=== PATIENT | male | born 1955 | race Caucasian/White ===

== ENCOUNTER 2018-02-06 16:19 | Emergency (ER) | payer BC, MEDICAID ==
[~2018-02-06] VITALS: Ht 182.9 cm; Wt 104.3 kg
[2018-02-06 17:12] LABS: Basophils # (auto) 0.1 uL; Eosinophils # (auto) 0.1 uL; Hematocrit 42.9 % (41.0-53.0); Hemoglobin 14.6 g/dL (13.5-17.5); Lymphocytes # (auto) 1.8 uL; Lymphocytes % (auto) 32.4 % (10.0-50.0); Mean Corpuscular Hemoglobin 30.3 pg (28.0-32.0); Monocytes # (auto) 0.3 uL; Monocytes % (auto) 6.2 % (0.0-12.0); Neutrophils # (auto) 3.2 uL; Neutrophils % (auto) 58.4 % (37.0-80.0); Platelet Count (auto) 285 10^3/uL (140-450); Red Blood Cells 4.82 10^6/uL (4.5-5.90); Red Cell Distribution Width 14.1 % (11.8-14.3); White Blood Cell 5.6 10^3/uL (4.4-10.8)
[2018-02-06 17:27] LABS: Anion Gap 4 (5-15); Blood Urea Nitrogen 18 mg/dL (7-18); Calcium 8.4 mg/dL (8.5-10.1); Carbon Dioxide 27 mmol/L (21-32); Chloride 108 mmol/L (98-107); Glucose 91 mg/dL (74-106); Potassium 4.3 mmol/L (3.5-5.1); Sodium 139 mmol/L (136-145)
[2018-02-06 17:32] LABS: Alanine Aminotransferase 46 U/L (16-61); Alkaline Phosphatase 80 U/L (45-117); Aspartate Aminotransferase 32 U/L (15-37); BUN/Creatinine Ratio 15.4; Bilirubin, Total 0.6 mg/dL (0.2-1.0); GFR African American 81 mL/min; GFR Non-African American 67 mL/min; Total Protein 7.4 g/dL (6.4-8.2)
[2018-02-06] MEDS ORDERED: SODIUM CHLORIDE 0.9% 500 ML IVB ONE (19:01)
[2018-02-06] MEDS ORDERED: MORPHINE SULFATE 4 MG/ML SYR/VIAL IV ONE (19:15)
[2018-02-06] MEDS ORDERED: ONDANSETRON HCL 4 MG/2 ML VIAL IV ONE (19:15)
[2018-02-06 19:43] LABS: Amylase 91 U/L (25-115); Lipase 159 U/L (73-393)
[2018-02-06 22:30] VITALS: BP 118/80
== END 2018-02-06 23:15 | disposition home or self-care (01) ==
LOC: ER 16:30
DX: I24.9 Acute ischemic heart disease, unspecified (principal); R51 Headache; E78.5 Hyperlipidemia, unspecified; I10 Essential (primary) hypertension; G89.29 Other chronic pain; M54.9 Dorsalgia, unspecified; M10.9 Gout, unspecified
CPT/HCPCS: 36415; 74176; 76705; 80053; 82150; 83690; 84484; 85025; 93005; 94761; 96374; 96375; 99284; J2270; J2405; J7040

== ENCOUNTER 2018-02-12 11:14 | Inpatient (IN) | payer BC ==
[~2018-02-12] VITALS: Ht 182.9 cm; Wt 105.0 kg
[2018-02-12 11:42] LABS: Basophils # (auto) 0.1 uL; Basophils % (auto) 0.8 % (0.0-2.0); Eosinophils # (auto) 0 uL; Eosinophils % (auto) 0.6 % (0.0-7.0); Hematocrit 45.5 % (41.0-53.0); Hemoglobin 15.4 g/dL (13.5-17.5); Lymphocytes # (auto) 1.6 uL; Mean Corpuscular Hemoglobin 30.1 pg (28.0-32.0); Mean Corpuscular Hgb Conc. 33.9 g/dL (32.0-36.0); Mean Corpuscular Volume 88.9 fL (80.0-100.0); Monocytes # (auto) 0.2 uL; Monocytes % (auto) 2.8 % (0.0-12.0); Neutrophils # (auto) 4.9 uL; Neutrophils % (auto) 71.8 % (37.0-80.0); Platelet Count (auto) 278 10^3/uL (140-450); Red Blood Cells 5.12 10^6/uL (4.5-5.90); Red Cell Distribution Width 14.5 % (11.8-14.3); White Blood Cell 6.9 10^3/uL (4.4-10.8)
[2018-02-12] MEDS ORDERED: ASPirin 81 mg TAB ONE (11:57)
[2018-02-12 11:58] LABS: Albumin 3.8 g/dL (3.4-5.0); Anion Gap 9 (5-15); Blood Urea Nitrogen 13 mg/dL (7-18); Carbon Dioxide 23 mmol/L (21-32); Chloride 108 mmol/L (98-107); Glucose 116 mg/dL (74-106); Potassium 3.6 mmol/L (3.5-5.1); Sodium 140 mmol/L (136-145)
[2018-02-12] MEDS ORDERED: MORPHINE SULFATE 4 MG/ML SYR/VIAL IV ONE ×2 (12:00→14:30)
[2018-02-12] MEDS ORDERED: ASPirin 81 mg TAB PO ONE (12:00)
[2018-02-12] MEDS ORDERED: ONDANSETRON HCL 4 MG/2 ML VIAL IV ONE (12:00)
[2018-02-12 12:04] LABS: Alanine Aminotransferase 38 U/L (16-61); Alkaline Phosphatase 90 U/L (45-117); Aspartate Aminotransferase 26 U/L (15-37); BUN/Creatinine Ratio 11.7; Bilirubin, Total 0.4 mg/dL (0.2-1.0); GFR African American 86 mL/min; GFR Non-African American 71 mL/min; Total Protein 7.4 g/dL (6.4-8.2)
[2018-02-12] MEDS ORDERED: SIMV-13 PO (14:48)
[2018-02-12] MEDS ORDERED: SUCR1TAB38 PO (14:48)
[2018-02-12] MEDS ORDERED: ONDA4TAB5 PO (14:48)
[2018-02-12] MEDS ORDERED: ACAM1TAB4 PO ×2 (14:48)
[2018-02-12] MEDS ORDERED: METO25TA5 PO (14:48)
[2018-02-12] MEDS ORDERED: MORPHINE SULFATE 4 MG/ML SYR/VIAL IV PRN (15:00)
[2018-02-12] MEDS ORDERED: HYDROcodone-ACET 5/325MG TAB PO PRN (15:00)
[2018-02-12] MEDS ORDERED: ONDANSETRON HCL 4 MG/2 ML VIAL IV PRN (15:00)
[2018-02-12] MEDS ORDERED: METOPROLOL TARTRATE 25 MG TAB PO ONE (15:00)
[2018-02-12] MEDS ORDERED: NITROGLYCERIN 0.4 MG SL TAB SL PRN (15:00)
[2018-02-12] MEDS ORDERED: NITROGLYCERIN 0.2MG/HR TOPICAL PATCH TD ONE ×2 (15:00→15:15)
[2018-02-12] MEDS: THIAMINE INJ 100 MG, MULTIPLE VITAMIN 10 ML, FOLIC ACID 1 MG, MAGNESIUM SULF SDV 50% 8 ... IV SCH ×5 (15:43)
[2018-02-12 16:01] LABS: Cannabinoid Screen, Urine NEGATIVE (NEGATIVE); Phencyclidine Screen, Urine NEGATIVE (NEGATIVE)
[2018-02-12 16:03] LABS: Amphetamine Screen, Urine NEGATIVE (NEGATIVE); Barbiturate Scree,Urine NEGATIVE (NEGATIVE); Benzodiazephine Screen, Urine NEGATIVE (NEGATIVE); Cocaine Screen, Urine NEGATIVE (NEGATIVE); Opiate Scree,Urine POSITIVE (NEGATIVE)
[2018-02-12 17:00] VITALS: BP 133/79
[2018-02-12] MEDS ORDERED: INFLUENZA QUAD 2018-2019 0.5 ML SYRG IM ONE (18:15)
[2018-02-12] MEDS: MORPHINE SULFATE 4 MG/ML SYR/VIAL IV PRN (20:59)
[2018-02-12 21:41] VITALS: BP 111/68
[2018-02-12] MEDS: ATORVASTATIN 20 MG TAB PO SCH (22:32)
[2018-02-12] MEDS: METOPROLOL TARTRATE 25 MG TAB PO SCH (22:33)
[2018-02-13] MEDS: MORPHINE SULFATE 4 MG/ML SYR/VIAL IV PRN ×3 (02:34→18:53)
[2018-02-13 04:56] VITALS: BP 134/85
[2018-02-13 06:11] LABS: Basophils # (auto) 0 uL; Basophils % (auto) 0.5 % (0.0-2.0); Eosinophils # (auto) 0 uL; Eosinophils % (auto) 0.4 % (0.0-7.0); Hematocrit 38.7 % (41.0-53.0); Hemoglobin 13.2 g/dL (13.5-17.5); Lymphocytes # (auto) 1.1 uL; Lymphocytes % (auto) 16.2 % (10.0-50.0); Mean Corpuscular Hemoglobin 30.4 pg (28.0-32.0); Mean Corpuscular Hgb Conc. 34.1 g/dL (32.0-36.0); Monocytes # (auto) 0.4 uL; Monocytes % (auto) 5.2 % (0.0-12.0); Neutrophils # (auto) 5.5 uL; Neutrophils % (auto) 77.7 % (37.0-80.0); Platelet Count (auto) 212 10^3/uL (140-450); Red Blood Cells 4.34 10^6/uL (4.5-5.90); Red Cell Distribution Width 14.6 % (11.8-14.3)
[2018-02-13 06:26] LABS: Anion Gap 7 (5-15); BUN/Creatinine Ratio 9.6; Blood Urea Nitrogen 10 mg/dL (7-18); Calcium 8.2 mg/dL (8.5-10.1); Carbon Dioxide 25 mmol/L (21-32); Chloride 106 mmol/L (98-107); GFR African American 93 mL/min; GFR Non-African American 77 mL/min; Glucose 103 mg/dL (74-106); Sodium 138 mmol/L (136-145)
[2018-02-13 09:00] VITALS: BP 129/90
[2018-02-13] MEDS: METOPROLOL TARTRATE 25 MG TAB PO SCH ×2 (09:16→20:04)
[2018-02-13] MEDS ORDERED: ASPirin-EC 81 mg tab PO SCH (10:00)
[2018-02-13] MEDS ORDERED: NITROGLYCERIN 0.2MG/HR TOPICAL PATCH TD SCH (10:00)
[2018-02-13] MEDS: THIAMINE INJ 100 MG, MULTIPLE VITAMIN 10 ML, FOLIC ACID 1 MG, MAGNESIUM SULF SDV 50% 8 ... IV SCH ×10 (12:00→14:19)
[2018-02-13 13:00] VITALS: BP 139/83
[2018-02-13] MEDS: LORazepam 2MG/ML-1ML VIAL IV PRN ×2 (13:58→20:03)
[2018-02-13 17:00] VITALS: BP 145/84
[2018-02-13] MEDS: ATORVASTATIN 20 MG TAB PO SCH (20:04)
[2018-02-13 21:33] VITALS: BP 135/87
== END 2018-02-14 00:10 | disposition left against medical advice (07) | DRG 303 ==
LOC: ER 11:14 → TELE 14:55 → TELE-WESTW 15:11
PROVIDERS: ADMIT Nurse Practitioner Acute Care; ATTEND Nurse Practitioner Acute Care
DX: I25.10 Atherosclerotic heart disease of native coronary artery without angina pectoris (principal); I24.9 Acute ischemic heart disease, unspecified; I10 Essential (primary) hypertension; E78.00 Pure hypercholesterolemia, unspecified; F10.10 Alcohol abuse, uncomplicated; E66.9 Obesity, unspecified; Z80.52 Family history of malignant neoplasm of bladder; Z82.49 Family history of ischemic heart disease and other diseases of the circulatory system; Z82.3 Family history of stroke; Z81.1 Family history of alcohol abuse and dependence; Z83.79 Family history of other diseases of the digestive system; E78.5 Hyperlipidemia, unspecified; Z87.11 Personal history of peptic ulcer disease; N20.0 Calculus of kidney; K21.9 Gastro-esophageal reflux disease without esophagitis; Z53.21 Procedure and treatment not carried out due to patient leaving prior to being seen by health care provider; Z68.31 Body mass index [BMI] 31.0-31.9, adult
CPT/HCPCS: 36415; 71045; 80048; 80053; 80307; 80320; 83690; 84484; 85025; 87081; 93005; 93306; 94761; 96374; 96375; 96376; G0378; J2405

== ENCOUNTER 2019-08-16 18:46 | Emergency (ER) | payer BC, OTHER ==
[~2019-08-16] VITALS: Ht 172.7 cm; Wt 79.8 kg
[~2019-08-16 18:46] MED LIST: ACAM1TAB4 PO; METO25TA5 PO; ONDA-144 PO; SIMV-13 PO; SUCR1TAB38 PO
[2019-08-16] MEDS ORDERED: SODIUM CHLORIDE 0.9% 1,000 ML IVB ONE (18:56)
[2019-08-16 19:27] LABS: Basophils # (auto) 0 10 ^3/uL (0-0.2); Basophils % (auto) 1.3 % (0.0-2.0); Eosinophils # (auto) 0.2 10 ^3/uL (0-0.8); Eosinophils % (auto) 6.5 % (0.0-7.0); Hematocrit 44.4 % (41.0-53.0); Lymphocytes # (auto) 1.2 10 ^3/uL (0.4-5.4); Lymphocytes % (auto) 42.6 % (10.0-50.0); Mean Corpuscular Hemoglobin 32.1 pg (28.0-32.0); Mean Corpuscular Hgb Conc. 33.8 g/dL (32.0-36.0); Mean Corpuscular Volume 95.2 fL (80.0-100.0); Monocytes # (auto) 0.1 10 ^3/uL (0-1.3); Monocytes % (auto) 5.1 % (0.0-12.0); Neutrophils # (auto) 1.3 10 ^3/uL (1.6-8.6); Neutrophils % (auto) 44.5 % (37.0-80.0); Nucleated Red Blood Cells % 0.3 %; Platelet Count (auto) 225 10^3/uL (140-450); Red Blood Cells 4.66 10^6/uL (4.5-5.90); White Blood Cell 2.8 10^3/uL (4.4-10.8)
[2019-08-16 19:43] LABS: Acetaminophen 11.3 ug/mL (10-30); Salicylate 4.9 mg/dL (2.8-20.0)
[2019-08-16 19:46] LABS: Albumin 3.2 g/dL (3.4-5.0); Calcium 8.5 mg/dL (8.5-10.1); Potassium 3.7 mmol/L (3.5-5.1)
[2019-08-16 19:52] LABS: BUN/Creatinine Ratio 9.4; Bilirubin, Total 0.5 mg/dL (0.2-1.0); Total Protein 6.9 g/dL (6.4-8.2)
[2019-08-16 23:00] VITALS: BP 101/58
== END 2019-08-17 00:10 | disposition home or self-care (01) ==
LOC: EDBD 18:46 → ER 18:50
DX: T50.902A Poisoning by unspecified drugs, medicaments and biological substances, intentional self-harm, initial encounter (principal); F10.129 Alcohol abuse with intoxication, unspecified; I11.0 Hypertensive heart disease with heart failure; I50.9 Heart failure, unspecified; E78.5 Hyperlipidemia, unspecified; I10 Essential (primary) hypertension; Y92.89 Other specified places as the place of occurrence of the external cause
CPT/HCPCS: 36415; 80053; 80320; 80329; 85025; 93005

== ENCOUNTER 2019-10-24 22:24 | Inpatient (IN) | payer OTHER ==
[~2019-10-24] VITALS: Ht 182.9 cm; Wt 91.5 kg
[~2019-10-24 22:24] MED LIST changes: +SUCR1TAB22 PO; -SUCR1TAB38 PO
[2019-10-24 23:48] LABS: Basophils # (auto) 0 10 ^3/uL (0-0.2); Basophils % (auto) 1.1 % (0.0-2.0); Eosinophils # (auto) 0.1 10 ^3/uL (0-0.8); Eosinophils % (auto) 2.3 % (0.0-7.0); Hematocrit 40.1 % (41.0-53.0); Hemoglobin 13.7 g/dL (13.5-17.5); Lymphocytes # (auto) 1.7 10 ^3/uL (0.4-5.4); Lymphocytes % (auto) 44.4 % (10.0-50.0); Mean Corpuscular Hemoglobin 31.8 pg (28.0-32.0); Mean Corpuscular Hgb Conc. 34.1 g/dL (32.0-36.0); Monocytes # (auto) 0.4 10 ^3/uL (0-1.3); Monocytes % (auto) 11.2 % (0.0-12.0); Neutrophils # (auto) 1.6 10 ^3/uL (1.6-8.6); Platelet Count (auto) 215 10^3/uL (140-450); Red Blood Cells 4.31 10^6/uL (4.5-5.90); White Blood Cell 3.8 10^3/uL (4.4-10.8)
[2019-10-25 00:05] LABS: Alanine Aminotransferase 47 U/L (16-61); Anion Gap 10 (5-15); Aspartate Aminotransferase 54 U/L (15-37); BUN/Creatinine Ratio 7.5; Blood Urea Nitrogen 6 mg/dL (7-18); Calcium 8.5 mg/dL (8.5-10.1); Carbon Dioxide 25 mmol/L (21-32); Chloride 105 mmol/L (98-107); GFR African American 125 mL/min; GFR Non-African American 103 mL/min; Glucose 73 mg/dL (74-106); Salicylate 4.7 mg/dL (2.8-20.0); Sodium 140 mmol/L (136-145)
[2019-10-25 00:06] LABS: Acetaminophen < 2.0 ug/mL (10-30)
[2019-10-25 00:08] LABS: Alkaline Phosphatase 128 U/L (45-117); Bilirubin, Total 0.6 mg/dL (0.2-1.0); Total Protein 6.8 g/dL (6.4-8.2)
[2019-10-25 00:20] LABS: Blood Alcohol 340.8 mg/dL (0-5)
[2019-10-25] MEDS ORDERED: SODIUM CHLORIDE 0.9% 2,000 ML IV ONE (01:30)
[2019-10-25] MEDS ORDERED: THIAMINE INJ 100 MG in SODIUM CHLORIDE 0.9% 1,000 ML IV ONE (01:30)
[2019-10-25] MEDS ORDERED: THIAMINE 100mg/ml INJ (200mg/2ml VIAL) ONE (01:50)
[2019-10-25] MEDS ORDERED: SODIUM CHLORIDE 0.9% 1,000 ML IV ONE (03:00)
[2019-10-25] MEDS ORDERED: LORazepam 2MG/ML-1ML VIAL IV ONE (04:00)
[2019-10-25] MEDS ORDERED: NITROGLYCERIN 0.4 MG SL TAB SL PRN (05:30)
[2019-10-25] MEDS ORDERED: TEMAZEPAM 15 MG CAP PO PRN (05:30)
[2019-10-25] MEDS ORDERED: ONDANSETRON HCL 4 MG/2 ML VIAL IV PRN (05:30)
[2019-10-25] MEDS ORDERED: MORPHINE SULF INJ 2 MG/ML SYRINGE 1ML IV PRN (05:30)
[2019-10-25] MEDS ORDERED: LORazepam 2MG/ML-1ML VIAL IV PRN (08:15)
[2019-10-25] MEDS ORDERED: LORazepam 2MG/ML-1ML VIAL ONE (08:21)
[2019-10-25] MEDS: chlordiazePOXIDE HCL 25 MG CAP PO PRN ×2 (08:26→14:22)
[2019-10-25] MEDS: FOLIC ACID 1 MG, MULTIPLE VITAMIN 10 ML, MAGNESIUM SULF SDV 50% 8 MEQ, THIAMINE INJ 100... INJ SCH ×5 (09:57)
[2019-10-25] MEDS: FAMOTIDINE 20 MG TAB PO SCH ×2 (10:01→21:36)
[2019-10-25] MEDS: FUROSEMIDE 20 MG TAB PO SCH (10:01)
[2019-10-25] MEDS ORDERED: ACETAMINOPHEN 325 MG TAB PO PRN (12:30)
[2019-10-25] MEDS: HYDROcodone-ACET 5/325MG TAB PO PRN ×2 (12:45→21:36)
[2019-10-25 12:48] LABS: Potassium 3.2 mmol/L (3.5-5.1)
[2019-10-25 12:50] LABS: BUN/Creatinine Ratio 10.1
--- NOTE | 2019-10-25 14:15 | NUR ---
Telemetry admit from ER SAADIABELLE OLIVEROS admitted to Telemetry unit after SBAR received. Patient oriented to RICHIE MESSINARN primary RN, unit,279 room,B bed, and unit policies regarding patient care and visiting hours. Patient now on continuous telemetry monitoring, tele box # 60 and telemetry reading on arrival to unit is ST.Fall precautions inplace bed locked and in lowest position side rails up x2, call light with in reach bed alarm on. Patient weighed by bedscale and encouraged to call if they need something. All questions and concerns addressed, patient verbalized understanding. Note:
[2019-10-25] MEDS: GABAPENTIN 300 MG CAP PO SCH ×2 (14:22→21:35)
[2019-10-25 14:50] VITALS: BP 117/64
[2019-10-25 17:22] VITALS: BP 107/49
--- NOTE | 2019-10-25 17:54 | NUR ---
Pt is an alert and oriented male that resides alone in his own home. Pt functions independently and has family in the area. Pt states he retired in April and recently from his of 43 years this past August. Pt has a long history of drinking as well as depression. Pt states he was last seen by a therapist for the depression 3 years ago but does not remember the name of the therapist. Pt is receptive to rehab placement for his behavioral health issues regarding alcohol abuse. Pt states he has been in 5 different alcohol rehabs in the past but could only remember the name of 3: [facility], [facility], and [facility]. Pts insurance ([employer] with [employer]) is a carve out for the group and authorization would need to be obtained from the health plan. Pt not exhibiting suicidal ideations but is experiencing feelings of loss in regards to his marriage, loss of identity and feelings of uselessness as a result of long term, and feelings of isolation in addition to the Depression. Fostered communication by actively listening to verbalizations of loss and hopelessness. Provided emotional support and discussed coping mechanisms/interventions appropriate for managing emotional stress as a short-term intervention. Contacted [facility] and [facility] for bed availability. Will follow up with [facility] and [facility] also. Currently no orders for discharge. Pt provided permission to discuss his case/condition with his daughter, Grecia. Will monitor and provide intervention as appropriate.
--- NOTE | 2019-10-25 19:45 | NUR ---
Opening Shift Note Assumed care of patient, awake and alert. Fall and safety precautions in place. Call light within reach and able to use. No S/S of distress/SOB. Instructed on POC and to call for assist PRN, patient verbalized understanding and in agreement. Will continue to monitor for changes Q1hr and PRN.
[2019-10-25] MEDS: ATORVASTATIN 20 MG TAB PO SCH (21:35)
[2019-10-25 22:00] VITALS: BP 94/62
[2019-10-26 05:00] VITALS: BP 93/63
[2019-10-26] MEDS: GABAPENTIN 300 MG CAP PO SCH ×3 (05:38→21:40)
[2019-10-26] MEDS: HYDROcodone-ACET 5/325MG TAB PO PRN ×2 (05:38→21:40)
[2019-10-26 07:11] LABS: Basophils # (auto) 0 10 ^3/uL (0-0.2); Eosinophils # (auto) 0.1 10 ^3/uL (0-0.8); Eosinophils % (auto) 4.4 % (0.0-7.0); Hemoglobin 11.6 g/dL (13.5-17.5); Lymphocytes % (auto) 46.2 % (10.0-50.0); Mean Corpuscular Hemoglobin 31.7 pg (28.0-32.0); Mean Corpuscular Hgb Conc. 34.3 g/dL (32.0-36.0); Mean Corpuscular Volume 92.5 fL (80.0-100.0); Monocytes # (auto) 0.2 10 ^3/uL (0-1.3); Monocytes % (auto) 11.3 % (0.0-12.0); Neutrophils # (auto) 0.8 10 ^3/uL (1.6-8.6); Neutrophils % (auto) 37.1 % (37.0-80.0); Nucleated Red Blood Cells % 0.1 %; Platelet Count (auto) 147 10^3/uL (140-450); Red Blood Cells 3.67 10^6/uL (4.5-5.90); White Blood Cell 2.2 10^3/uL (4.4-10.8)
[2019-10-26 07:35] LABS: Albumin 2.5 g/dL (3.4-5.0); Calcium 8.1 mg/dL (8.5-10.1); Magnesium 1.7 mg/dL (1.6-2.6)
[2019-10-26 07:38] LABS: BUN/Creatinine Ratio 10.1; Bilirubin, Total 0.9 mg/dL (0.2-1.0); Phosphorus 3.2 mg/dL (2.5-4.90); Total Protein 5.1 g/dL (6.4-8.2)
[2019-10-26 07:50] LABS: Potassium 2.9 mmol/L (3.5-5.1)
--- NOTE | 2019-10-26 07:50 | NUR ---
Critical lab critical potassium received. MD Campbell paged to notify. No distress or sob noted
[2019-10-26] MEDS ORDERED: POTASSIUM CHL 20MEQ/100ML 100 ML IV SCH (08:45)
[2019-10-26] MEDS ORDERED: POTASSIUM CHL 20 Meq TABLET PO ONE (08:45)
[2019-10-26] MEDS ORDERED: SODIUM CHLORIDE 0.9% 500 ML IV ONE (09:15)
[2019-10-26] MEDS ORDERED: POTASSIUM CHLORIDE 40 MEQ, LIDOCAINE 1% (LOCAL ANESTH.) 4 ML in SODIUM CHL 0.9% 100 ML IV ONE (09:15)
[2019-10-26 09:18] VITALS: BP 87/51
[2019-10-26] MEDS: FAMOTIDINE 20 MG TAB PO SCH ×2 (09:44→21:40)
[2019-10-26] MEDS: FUROSEMIDE 20 MG TAB PO SCH (09:45)
--- NOTE | 2019-10-26 10:00 | NUR ---
at bedside MD Campbell at bedside, aware of patient's status including abnormal labs, VS including decreased BP. Cont care
[2019-10-26] MEDS: SODIUM CHLORIDE 0.9% 1,000 ML IV SCH ×2 (10:45→18:45)
[2019-10-26 13:00] VITALS: BP 94/57
[2019-10-26] MEDS: FOLIC ACID 1 MG, MULTIPLE VITAMIN 10 ML, MAGNESIUM SULF SDV 50% 8 MEQ, THIAMINE INJ 100... INJ SCH ×5 (13:53)
[2019-10-26 17:24] VITALS: BP 117/69
--- NOTE | 2019-10-26 17:30 | NUR ---
Tele psych placed. Awaiting Psychiatrist at this time. Monitor in place at this time.
--- NOTE | 2019-10-26 19:00 | NUR ---
Patient care endorsed to Gemini rn. Patient sitting up in bed no acute distress or sob noted.
[2019-10-26 20:00] VITALS: BP 87/51
[2019-10-26] MEDS: chlordiazePOXIDE HCL 25 MG CAP PO PRN (21:39)
[2019-10-26] MEDS: ATORVASTATIN 20 MG TAB PO SCH (21:41)
[2019-10-26 22:00] VITALS: BP 108/70
[2019-10-27] MEDS: SODIUM CHLORIDE 0.9% 1,000 ML IV SCH ×3 (02:45→19:16)
[2019-10-27 05:00] VITALS: BP 111/70
[2019-10-27] MEDS: GABAPENTIN 300 MG CAP PO SCH ×3 (06:27→21:40)
--- NOTE | 2019-10-27 06:39 | NUR ---
PT RESTED WELL THROUGHOUT THE NIGHT WITH NO DISTRESS OBSERVED.
[2019-10-27 08:08] LABS: Basophils # (auto) 0 10 ^3/uL (0-0.2); Basophils % (auto) 0.6 % (0.0-2.0); Eosinophils # (auto) 0.1 10 ^3/uL (0-0.8); Eosinophils % (auto) 5.3 % (0.0-7.0); Hematocrit 34.2 % (41.0-53.0); Hemoglobin 11.3 g/dL (13.5-17.5); Lymphocytes # (auto) 0.9 10 ^3/uL (0.4-5.4); Lymphocytes % (auto) 39.3 % (10.0-50.0); Mean Corpuscular Hgb Conc. 33.1 g/dL (32.0-36.0); Mean Corpuscular Volume 93.5 fL (80.0-100.0); Monocytes # (auto) 0.2 10 ^3/uL (0-1.3); Monocytes % (auto) 10.9 % (0.0-12.0); Neutrophils % (auto) 43.9 % (37.0-80.0); Nucleated Red Blood Cells % 0.2 %; Platelet Count (auto) 132 10^3/uL (140-450); Red Blood Cells 3.66 10^6/uL (4.5-5.90); Red Cell Distribution Width 16.8 % (11.8-14.3); White Blood Cell 2.3 10^3/uL (4.4-10.8)
[2019-10-27 08:28] LABS: Potassium 3.8 mmol/L (3.5-5.1)
[2019-10-27 08:35] LABS: BUN/Creatinine Ratio 9.2; Calcium 8.4 mg/dL (8.5-10.1); Phosphorus 2.6 mg/dL (2.5-4.90)
[2019-10-27 09:00] VITALS: BP 111/71
--- NOTE | 2019-10-27 10:35 | NUR ---
at bedside MD Campbell at bedside, pt still unstable when getting up and around, tremors noted decreased, pt is a&ox4. New orders received for ss consult for HH and walker for possible dc home tomorrow. 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 Patient verbalized understanding. Cont care
[2019-10-27] MEDS: FAMOTIDINE 20 MG TAB PO SCH ×2 (10:42→21:40)
[2019-10-27 12:39] VITALS: BP 91/54
[2019-10-27] MEDS: FOLIC ACID 1 MG, MULTIPLE VITAMIN 10 ML, MAGNESIUM SULF SDV 50% 8 MEQ, THIAMINE INJ 100... INJ SCH ×5 (14:03)
--- NOTE | 2019-10-27 14:45 | NUR ---
Spoke to SS regarding consult Allison with licensed master social worker notified of pending consult for HH safety eval and walker for possible dc home tomorrow. Per Allison they will take care of it. Tele psych report pending at this time. Cont care
--- NOTE | 2019-10-27 15:17 | NUR ---
Regarding tele psych report I called to request tele psych report to be faxed to [facility] [phone]. Report received and placed in chart. Per report, pt does not meet criteria for inpatient psych facility and recommend [facility]
[2019-10-27 17:00] VITALS: BP 127/66
--- NOTE | 2019-10-27 19:15 | NUR ---
Patient care endorsed to Arianne gao. Patient sitting up in bed no acute distress or sob noted. Call light within reach.
[2019-10-27 20:00] VITALS: BP 110/70
--- NOTE | 2019-10-27 20:10 | NUR ---
Opening Shift Note Assumed care of patient, awake and alert. No S/S of distress/SOB or pain. Instructed on POC and to call for assist PRN, will continue to monitor for changes Q1hr and PRN.
[2019-10-27] MEDS: HYDROcodone-ACET 5/325MG TAB PO PRN (20:42)
[2019-10-27] MEDS: ATORVASTATIN 20 MG TAB PO SCH (21:40)
[2019-10-27 22:00] VITALS: BP 110/70
[2019-10-28] MEDS: SODIUM CHLORIDE 0.9% 1,000 ML IV SCH ×3 (02:45→18:24)
[2019-10-28 05:00] VITALS: BP 105/70
[2019-10-28] MEDS: GABAPENTIN 300 MG CAP PO SCH ×2 (05:44→13:07)
[2019-10-28 05:56] LABS: Basophils # (auto) 0.1 10 ^3/uL (0-0.2); Basophils % (auto) 1.6 % (0.0-2.0); Eosinophils # (auto) 0.2 10 ^3/uL (0-0.8); Eosinophils % (auto) 5.5 % (0.0-7.0); Hematocrit 35.4 % (41.0-53.0); Hemoglobin 11.6 g/dL (13.5-17.5); Lymphocytes # (auto) 1.1 10 ^3/uL (0.4-5.4); Mean Corpuscular Hgb Conc. 32.9 g/dL (32.0-36.0); Mean Corpuscular Volume 94.2 fL (80.0-100.0); Monocytes # (auto) 0.2 10 ^3/uL (0-1.3); Monocytes % (auto) 7.3 % (0.0-12.0); Neutrophils # (auto) 1.5 10 ^3/uL (1.6-8.6); Neutrophils % (auto) 49.6 % (37.0-80.0); Platelet Count (auto) 154 10^3/uL (140-450); Red Blood Cells 3.76 10^6/uL (4.5-5.90); Red Cell Distribution Width 16.8 % (11.8-14.3); White Blood Cell 3.1 10^3/uL (4.4-10.8)
[2019-10-28 06:19] LABS: Calcium 8.3 mg/dL (8.5-10.1); Magnesium 2.1 mg/dL (1.6-2.6); Potassium 3.8 mmol/L (3.5-5.1)
[2019-10-28 06:21] LABS: BUN/Creatinine Ratio 10.7
--- NOTE | 2019-10-28 07:30 | NUR ---
Opening Shift Note Assumed care of patient, awake and alert. Fall and safety precautions in place. Call light within reach and able to use. No S/S of distress/SOB. Instructed on POC and to call for assist PRN, patient verbalized understanding and in agreement.Patient possible discharge today pending delivery of a walker. Will continue to monitor for changes Q1hr and PRN.
[2019-10-28] MEDS: FAMOTIDINE 20 MG TAB PO SCH (07:46)
[2019-10-28] MEDS: HYDROcodone-ACET 5/325MG TAB PO PRN (07:46)
[2019-10-28 09:00] VITALS: BP 103/62
--- NOTE | 2019-10-28 11:45 | NUR ---
IC DESIGNER CUSTOM Christelle HICKEY INSTRUCTED THIS RN TO FAX DOCUMENTATION TO [facility].
--- NOTE | 2019-10-28 12:00 | NUR ---
FAXED H&P, FACE SHEET AND ORDER TO [facility] [phone] AND FOR SUSANA CHO [facility] [phone].
[2019-10-28 12:30] VITALS: BP 87/51
[2019-10-28 13:00] VITALS: BP 102/69
[2019-10-28] MEDS: FOLIC ACID 1 MG, MULTIPLE VITAMIN 10 ML, MAGNESIUM SULF SDV 50% 8 MEQ, THIAMINE INJ 100... INJ SCH ×5 (13:05)
--- NOTE | 2019-10-28 13:08 | NUR ---
neuro consult place by dr bender
--- NOTE | 2019-10-28 13:58 | NUR ---
fax error for [facility] THE FAX NUMBER FOR [facility] WAS VERIFIED WITH [facility]S [phone] CORRECT. CALLED [facility] [phone] TO VERIFY FAX NUMBER A MESSAGE WAS LEFT ON THEIR ANSWERING SERVICE. WILL TRY AGAIN LATER.
--- NOTE | 2019-10-28 15:00 | NUR ---
up with pt, tolerated well.
--- NOTE | 2019-10-28 15:25 | NUR ---
walker delivered to patient bedside.
--- NOTE | 2019-10-28 16:09 | NUR ---
Resume home health services. Patient will contact [facility] to resume services.
--- NOTE | 2019-10-28 16:10 | NUR ---
AA SPONSOR PATIENT PROVIDED PHONE NUMBERS TO [facility] AND [facility] FOR INPATIENT REHAB FOR ALCOHOL ABUSE. PATIENT STATED HE HAS A SPONSOR FROM THAT IS ALREADY ASSISTING HIM FIND PLACEMENT.
--- NOTE | 2019-10-28 16:16 | NUR ---
WOUND PHOTOS TAKEN
[2019-10-28 17:00] VITALS: BP 105/70
--- NOTE | 2019-10-28 18:50 | NUR ---
DISCHARGED TAKEN VIA WC BY COUNTER ROLLER TO BE TAKEN HOME IN A TAXI.. PATIENT HAD ALL BELONGINGS, DISCHARGE SUMMARY, NEW PRESCRIPTIONS AND A WALKER THAT WAS DELIVERED TODAY. TELE BOX SENT TO ICU AND IV REMOVED WITH ASEPTIC TECHNIQUE, PATIENT TOLERATED WELL.
--- NOTE | 2019-10-29 17:12 | NUR ---
computer console operator 10/28/2019 I received a call from Alexey RN stating patient has a ss consult for home health and fww. Per Winston Davis at [facility] send order to [facility] and [facility] for fww no auth is needed. I informed Alexey and gave her fax and phone numbers. I also provided Alexey with [facility] and [facility] as well as local meetings. Per Winston Davis housing case manager patient will have to go out patient for [facility] rehab. Alexey was informed. Addendum: 10/29/19 at 1715 by Cher MCKENZIE Amended: Links added.
== END 2019-10-28 18:45 | disposition home health service (06) | DRG 897 ==
LOC: EDBD 22:24 → ER 22:28 → TELE 22:29 → TELE-WESTW 10-25 14:04
PROVIDERS: ADMIT Nurse Practitioner; ATTEND Internal Medicine
DX: F10.229 Alcohol dependence with intoxication, unspecified (principal); F10.239 Alcohol dependence with withdrawal, unspecified; I95.9 Hypotension, unspecified; F32.9 Major depressive disorder, single episode, unspecified; E87.6 Hypokalemia; F41.9 Anxiety disorder, unspecified; K74.60 Unspecified cirrhosis of liver; E88.09 Other disorders of plasma-protein metabolism, not elsewhere classified; Z87.11 Personal history of peptic ulcer disease; M21.371 Foot drop, right foot; F17.200 Nicotine dependence, unspecified, uncomplicated; I11.0 Hypertensive heart disease with heart failure; I50.9 Heart failure, unspecified; Z79.899 Other long term (current) drug therapy; M25.471 Effusion, right ankle; Y90.8 Blood alcohol level of 240 mg/100 ml or more
CPT/HCPCS: 36415; 80048; 80053; 80320; 80329; 83735; 83880; 84100; 85025; 97530; G0378; J2001

== ENCOUNTER 2020-08-16 21:26 | Emergency (ER) | payer OTHER ==
[~2020-08-16] VITALS: Ht 180.3 cm; Wt 95.3 kg
[2020-08-16] MEDS ORDERED: KETOROLAC TROMETH 30 MG/ML 1ML VIAL IV ONE (22:15)
[2020-08-16] MEDS ORDERED: THIAMINE HCL 100 MG TAB PO ONE (22:15)
[2020-08-16 22:46] LABS: Eosinophils # (auto) 0 10 ^3/uL (0-0.8); Monocytes # (auto) 0.2 10 ^3/uL (0-1.3)
[2020-08-16 22:47] LABS: Basophils # (auto) 0 10 ^3/uL (0-0.2); Basophils % (auto) 1.5 % (0.0-2.0); Eosinophils % (auto) 1.2 % (0.0-7.0); Hematocrit 35.9 % (41.0-53.0); Hemoglobin 11.6 g/dL (13.5-17.5); Lymphocytes % (auto) 32.4 % (10.0-50.0); Mean Corpuscular Hemoglobin 23.5 pg (28.0-32.0); Mean Corpuscular Hgb Conc. 32.3 g/dL (32.0-36.0); Mean Corpuscular Volume 72.9 fL (80.0-100.0); Monocytes % (auto) 6.9 % (0.0-12.0); Neutrophils # (auto) 1.8 10 ^3/uL (1.6-8.6); Nucleated Red Blood Cells % 0.2 %; Platelet Count (auto) 386 10^3/uL (140-450); Red Blood Cells 4.92 10^6/uL (4.5-5.90)
[2020-08-16 22:51] LABS: Red Cell Distribution Width 23.8 % (11.8-14.3)
[2020-08-16 23:04] LABS: Albumin 3.4 g/dL (3.4-5.0); BUN/Creatinine Ratio 16.3; Magnesium 2.2 mg/dL (1.6-2.6); Potassium 3.5 mmol/L (3.5-5.1)
[2020-08-16 23:06] LABS: Bilirubin, Total 0.4 mg/dL (0.2-1.0)
[2020-08-17 05:30] VITALS: BP 117/6
== END 2020-08-17 06:08 | disposition home or self-care (01) ==
LOC: EDBD 21:26 → ER 21:30
DX: F10.129 Alcohol abuse with intoxication, unspecified (principal); I11.0 Hypertensive heart disease with heart failure; I50.9 Heart failure, unspecified; E78.5 Hyperlipidemia, unspecified; Y90.9 Presence of alcohol in blood, level not specified; Z79.899 Other long term (current) drug therapy
CPT/HCPCS: 36415; 80053; 83735; 85025; 85049; 93005; 96374; 99285; J1885

== ENCOUNTER 2022-05-31 14:53 | Emergency (ER) | payer OTHER ==
[~2022-05-31] VITALS: Ht 177.8 cm; Wt 90.0 kg
[2022-05-31 15:00] VITALS: BP 123/85
[2022-05-31] MEDS ORDERED: THIAMINE 100mg/ml INJ (200mg/2ml VIAL) IV ONE (15:45)
[2022-05-31] MEDS ORDERED: SODIUM CHLORIDE 0.9% 1,000 ML IV ONE (15:45)
[2022-05-31 15:54] LABS: Basophils # (auto) 0 10 ^3/uL (0-0.2); Eosinophils # (auto) 0.1 10 ^3/uL (0-0.8); Hematocrit 38.5 % (41.0-53.0); Hemoglobin 12.1 g/dL (13.5-17.5); Lymphocytes # (auto) 1.4 10 ^3/uL (0.4-5.4); Lymphocytes % (auto) 43.9 % (10.0-50.0); Mean Corpuscular Hemoglobin 24.3 pg (28.0-32.0); Mean Corpuscular Hgb Conc. 31.4 g/dL (32.0-36.0); Mean Corpuscular Volume 77.5 fL (80.0-100.0); Monocytes # (auto) 0.2 10 ^3/uL (0-1.3); Monocytes % (auto) 6.2 % (0.0-12.0); Neutrophils # (auto) 1.4 10 ^3/uL (1.6-8.6); Neutrophils % (auto) 44.9 % (37.0-80.0); Nucleated Red Blood Cells % 0.3 %; Red Blood Cells 4.96 10^6/uL (4.5-5.90); White Blood Cell 3.1 10^3/uL (4.4-10.8)
[2022-05-31 15:55] LABS: Red Cell Distribution Width 23.5 % (11.8-14.3)
[2022-05-31 16:12] LABS: Albumin 3.5 g/dL (3.4-5.0); Calcium 8.3 mg/dL (8.5-10.1); Potassium 4.1 mmol/L (3.5-5.1)
[2022-05-31 16:15] LABS: BUN/Creatinine Ratio 11.8 (10.0-20.0); Bilirubin, Total 0.3 mg/dL (0.2-1.0); Total Protein 6.3 g/dL (6.4-8.2)
== END 2022-05-31 20:57 | disposition left against medical advice (07) ==
LOC: EDBD 14:53 → ER 14:53
DX: K29.70 Gastritis, unspecified, without bleeding (principal); R10.9 Unspecified abdominal pain; I11.0 Hypertensive heart disease with heart failure; I50.9 Heart failure, unspecified; E78.5 Hyperlipidemia, unspecified; Z79.899 Other long term (current) drug therapy
CPT/HCPCS: 36415; 74176; 80053; 80320; 83690; 85025